=== PATIENT | female | born 1970 | race Caucasian/White ===

== ENCOUNTER 2021-07-12 07:25 | Outpatient (REF) | payer MEDICARE, SELFPAY ==
--- NOTE | ~2021-07-12 | XR_ITS ---
EXAMINATION: XR knee LT 2V, XR knee standing BI CLINICAL INFORMATION: Reason for Exam M25.562 - Pain in left knee COMPARISON: None. TECHNIQUE: Weightbearing AP view of both knees and sunrise and lateral views of the left knee FINDINGS: No acute fracture or dislocation. Tricompartmental marginal osteophytes present. Mild loss of medial tibiofemoral compartment joint space thickness on the left. Bone island present within the proximal tibial metaphysis on the left. Trace left knee joint effusion. XR/XR knee LT 2V IMPRESSION: No acute findings. Degenerative changes as described.
--- NOTE | ~2021-07-12 | XR_ITS ---
EXAMINATION: XR knee LT 2V, XR knee standing BI CLINICAL INFORMATION: Reason for Exam M25.562 - Pain in left knee COMPARISON: None. TECHNIQUE: Weightbearing AP view of both knees and sunrise and lateral views of the left knee FINDINGS: No acute fracture or dislocation. Tricompartmental marginal osteophytes present. Mild loss of medial tibiofemoral compartment joint space thickness on the left. Bone island present within the proximal tibial metaphysis on the left. Trace left knee joint effusion. XR/XR knee standing BI IMPRESSION: No acute findings. Degenerative changes as described.
== END 2021-07-12 07:26 | disposition home or self-care (01) ==
LOC: HO.HOSX 07:25
PROVIDERS: Visit Provider Physician Assistant
DX: M23.91 Unspecified internal derangement of right knee (principal); M25.562 Pain in left knee
CPT/HCPCS: 73560; 73565; 99202